=== PATIENT | female | born 1965 | race Caucasian/White ===

== ENCOUNTER → 2019-12-02 15:49 | Outpatient (CLI) | payer MEDICAID, SELFPAY ==
--- NOTE | 2019-12-02 16:45 | MRI_ITS ---
STUDY: MRI LUMBAR SPINE WITHOUT CONTRAST REASON FOR EXAM: Female, 54 years old. Intervertebral disc degeneration, LBP with radiculopathy into legs, L and gt;R TECHNIQUE: Standardized fat and water weighted pulse sequences were obtained in the sagittal and axial planes. COMPARISON: None FINDINGS: Normal lumbar lordosis. There is no substantial scoliosis. Normal conus medullaris that terminates at the L1 L1-2: There is minimal disc space narrowing and endplate spondylosis. There is no significant disc herniation, central canal or foraminal stenosis. L2-3: There is minimal disc space narrowing and endplate spondylosis. There is no significant disc herniation, central canal or foraminal stenosis. Mild facet arthropathy L3-4: There is minimal disc space narrowing and endplate spondylosis. There is mild disc bulge without significant central canal or foraminal stenosis. There is moderate facet arthropathy with minimal grade 1 anterolisthesis. L4-5: There is minimal disc space narrowing and endplates spondylosis. There is mild disc bulge and moderate facet arthropathy without significant central canal or foraminal stenosis. L5-S1: There is minimal disc space narrowing and endplate spondylosis. There is no significant disc herniation, central canal or foraminal stenosis. Moderate facet arthropathy Normal visualized sacral ala. MRI/Spine Lumbar (Routine) IMPRESSION: L3/L4: Facet arthropathy with minimal anterolisthesis. Electronically Signed: Cheng Fragoso MD at 14:58 EDT Tel , Service support ,
== END ==
PROVIDERS: PCP Nurse Practitioner Family; Referring Provider Anesthesiology Pain Medicine; Visit Provider Anesthesiology Pain Medicine
DX: M51.37 Other intervertebral disc degeneration, lumbosacral region (principal)
CPT/HCPCS: 72148